=== PATIENT | female | born 1950 | race American Indian/Alaskan Native ===

== ENCOUNTER 2016-06-20 11:53 | Outpatient (CLI) | payer MEDICARE ==
--- NOTE | 2016-06-20 13:11 | XRay Report ---
Right hip 2 views: History: Hip pain. Findings: There is mild arthritic changes noted in the joint. No fracture dislocation or soft tissue calcification. Impression: Arthritic changes right hip.
--- NOTE | 2016-06-20 13:13 | XRay Report ---
Lumbar spine 3 views: History: Chronic back pain. Findings: There is posterior stabilizing rods with interpedicular screws noted at L3 and L4. Hyper vertebral bodies appears normal. Minimal decrease in height of L3-4, L4-5 and L5-S1 with early degenerative changes. No fracture. No soft tissue calcification. Impression: Early degenerative changes. Findings as detailed above.
== END 2016-06-20 11:54 | disposition home or self-care (01) ==
LOC: SPVIMAG 11:53
PROVIDERS: ATTEND Internal Medicine
DX: M47.897 Other spondylosis, lumbosacral region (principal); M25.551 Pain in right hip
CPT/HCPCS: 72100